=== PATIENT | female | born 1990 | race Caucasian/White ===

== ENCOUNTER 2017-05-24 18:29 | Emergency (ER) | payer MEDICAID ==
[~2017-05-24] VITALS: Ht 170.2 cm; Wt 66.5 kg
[2017-05-24 18:40] VITALS: BP 138/83; PULSE 90; RESP 20; TEMP 98.3; O2SAT 99
--- NOTE | 2017-05-24 19:24 | PD ---
HPI Chief Complaint: Injury Time Seen by Provider: 18:55 Travel History International Travel<30 days: No Contact w/Intl Traveler<30days: No Traveled to known affect area: No History of Present Illness HPI 26-year-old female presents emergency Department with chief complaint of neck and right knee pain status post fall. Injury occurred last night while at work. 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 She reports pain within the neck and the knee, worse with movement, relieved with rest, nonradiating, severity 7 out of 10. She denies numbness/weakness/tingling in the upper or lower extremities. She reports weightbearing is difficult on the right knee. She has a history of a MCL tear last year in the right knee. She denies chest pain, shortness of breath, abdominal pain, nausea or vomiting. PFSH Past Medical History Medical History: Denies Significant Hx ?: Not LMP: MAY 08 Past Surgical History Surgical History: No Previous Surgery Social History Alcohol Use: Yes Tobacco Use: Yes Substance Use: Yes (marijuana) Allergies-Medications (Allergen,Severity, Reaction): Coded Allergies: Penicillin (Verified Allergy, Unknown, hives, 05/24/17) Review of Systems Except as stated in HPI: all other systems reviewed are Neg General / Constitutional: No: Fever Eyes: No: Visual changes HENT: No: Headaches Cardiovascular: No: Chest Pain or Discomfort Respiratory: No: Shortness of Breath Gastrointestinal: No: Abdominal Pain Genitourinary: No: Dysuria Musculoskeletal: Positive: Pain (neck and right knee) Physical Exam Narrative GENERAL: Alert, well-appearing female no acute distress. SKIN: Focused skin assessment warm/dry. Multiple ecchymotic areas over the right anterior knee HEAD: Atraumatic. Normocephalic. EYES: Pupils equal and round. No scleral icterus. No injection or drainage. ENT: No nasal bleeding or discharge. Mucous membranes pink and moist. NECK: Trachea midline. No JVD. Generalized posterior neck pain with point tenderness over the midline spine. C-collar placed. CARDIOVASCULAR: Regular rate and rhythm. No murmur appreciated. CHEST: No rib or chest wall tenderness RESPIRATORY: No accessory muscle use. Clear to auscultation. Breath sounds equal bilaterally. GASTROINTESTINAL: Abdomen soft, non-tender, nondistended. Hepatic and splenic margins not palpable. MUSCULOSKELETAL: No obvious deformities. No clubbing. No cyanosis. No edema. Right knee: Multiple areas of ecchymosis anterior aspect. Mild joint effusion. The joint is stable. Pain with full flexion. 2+ distal pulses. Normal sensation. NEUROLOGICAL: Awake and alert. No obvious cranial nerve deficits. Motor grossly within normal limits. Normal speech. PSYCHIATRIC: Appropriate mood and affect; insight and judgment normal. Data Data Last Documented VS Vital Signs Date Time Temp Pulse Resp B/P Pulse Ox O2 Delivery O2 Flow Rate FiO2 05/24/17 18:40 98.3 90 20 138/[address] Cerv Spine W/O Contrast (05/24/17 ) Knee, Complete (4vws) (05/24/17 ) [facility] Medical Decision Making Medical Screen Exam Complete: Yes Emergency Medical Condition: Yes Differential Diagnosis Cervical spine fracture versus strain versus sprain, right knee fracture versus sprain versus strain versus contusion Narrative Course 26-year-old female presents with chief complaint of neck pain and right knee pain status post fall yesterday. Cervical collar was placed by nursing staff after examination revealed patient had midline cervical spine tenderness. CT scan and x-ray pending. CT scan of cervical spine: No bony abnormality or acute fractures. Questionable minimal disc protrusion at C5-C6. X-ray right knee: Negative for acute fracture Diagnostic findings discussed with patient. Cervical collar removed. Repeat neuro exam performed no focal abnormalities. Helio wrap applied to the right knee. Patient instructed to follow up with her primary care doctor. She will be treated for cervical strain. Instructed to use [id number] Motrin and given prescription for muscle relaxer. Patient agrees to plan Diagnosis Primary Impression: Cervical strain Qualified Code: S16.1XXA - Cervical strain, initial encounter Additional Impression: Knee sprain Qualified Code: S83.91XA - Sprain of right knee, unspecified ligament, initial encounter Referrals: Primary Care Physician Additional Instructions: Wear the Helio wrap as discussed. Ice and elevate the 70. Take [id number] Motrin [id number] milligrams every 6-8 hours as needed for pain. Take a muscle relaxer as needed for muscle spasm. Follow up with her primary care doctor for recheck Scripts Methocarbamol (Robaxin)500 Mg [id number] Mg PO TID PRN (MUSCLE SPASM) #12 TAB Prov:Megha Saldivar 05/24/17 Disposition: 01 DISCHARGE HOME Condition: Stable Megha Saldivar May 24, 2017 19:24
--- NOTE | 2017-05-24 19:48 | RADRPT ---
EXAM DATE/TIME: 05/24/2017 19:13 [facility] COMPARISON: No previous studies available for comparison. INDICATIONS : Right knee pain. Previously broken, one year ago, no surgery. MEDICAL HISTORY : None. SURGICAL HISTORY : None. ENCOUNTER: Initial ACUITY: 1 day PAIN SCORE: 6/10 LOCATION: Right Knee FINDINGS: Four view examination of the right knee demonstrates no evidence of fracture or dislocation. Bony mi neralization is normal. The articular surfaces are intact. The suprapatellar soft tissues have a no rmal configuration. CONCLUSION: Unremarkable examination of the right knee. Reyes Mcarthur MD on May 24, 2017 at 19:45 Board Certified Radiologist. This report was verified electronically.
--- NOTE | 2017-05-24 20:05 | RADRPT ---
EXAM DATE/TIME: 05/24/2017 19:29 [facility] COMPARISON: No previous studies available for comparison. INDICATIONS : Trauma. Fall. RADIATION DOSE: 26.11 CTDIvol (mGy) MEDICAL HISTORY : None SURGICAL HISTORY : None. ENCOUNTER: Initial ACUITY: 1 day PAIN SCALE: 9/10 LOCATION: neck TECHNIQUE: Volumetric scanning of the cervical spine was performed. Multiplanar reconstructions in the sagittal, coronal and oblique axial planes were performed. Using automated exposure control and adjustment o f the mA and/or kV according to patient size, radiation dose was kept as low as reasonably achievable to obtain optimal diagnostic quality images. DICOM format image data is available electronically f or review and comparison. FINDINGS: VERTEBRAE: Normal vertebral body height. ALIGNMENT: No evidence of subluxation. C2-C3: The bony spinal canal is normal in size. No evidence of disc bulge or herniation. The neural forami na are bilaterally patent. C3-C4: The bony spinal canal is normal in size. No evidence of disc bulge or herniation. The neural forami na are bilaterally patent. C4-C5: The bony spinal canal is normal in size. No evidence of disc bulge or herniation. The neural forami na are bilaterally patent. C5-C6: There is a question of minimal central disc protrusion without significant stenosis. The bony spinal canal is normal in size. The neural foramina are bilaterally patent. C6-C7: The bony spinal canal is normal in size. No evidence of disc bulge or herniation. The neural forami na are bilaterally patent. C7-T1: The bony spinal canal is normal in size. No evidence of disc bulge or herniation. The neural forami na are bilaterally patent. CONCLUSION: 1. No bony abnormalities seen. 2. Questionable minimal disc protrusion at the C5-C6 level. Reyes Mcarthur MD on May 24, 2017 at 20:00 Board Certified Radiologist. This report was verified electronically.
[2017-05-24] MEDS ORDERED: ROBA500T PO (20:11)
[2017-05-24] MEDS ORDERED: KETOROLAC TROMETHAMINE 60 MG/2 ML (IM) VIAL IM ONE (20:30)
== END 2017-05-24 20:38 | disposition home or self-care (01) ==
LOC: PHEFT 18:29
DX: S16.1XXA Strain of muscle, fascia and tendon at neck level, initial encounter (principal); S83.91XA Sprain of unspecified site of right knee, initial encounter; F12.10 Cannabis abuse, uncomplicated; Z72.0 Tobacco use; W18.30XA Fall on same level, unspecified, initial encounter; Y93.9 Activity, unspecified; Y92.89 Other specified places as the place of occurrence of the external cause; Y99.0 Civilian activity done for income or pay
CPT/HCPCS: 72125; 73564; 96372; 99285; J1885